=== PATIENT | female | born 1960 | race Caucasian/White ===

== ENCOUNTER → 2017-05-14 | Outpatient (CLI) | payer BC ==
[~2017-05-14] MED LIST: AMITRIPTYLINE H25 M2 PO; CLONAZEPAM 0.50.5 M1 PO; CLONAZEPAM 1 MG1 M1 PO; CYMBALTA60 MG PO; ESTRADIOL PO; HYDROCODON-ACE1 EAC5 PO; HYDROCODON-ACE1 EAC8 PO; LIORESAL 10 MG10 MG PO; MENOPAUSE SUPPO20 MG PO; NABUMETONE 500500 M1 PO; NEURONTIN 300300 M1 PO; NICOTINE PATCH1 EAC2 TRANSDERM; NORTRIPTYLINE H25 M3 PO; NUCYNTA50 MG PO; NUCYNTA75 MG PO; RELACOR PO; TRAMADOL 50 MG50 MG PO; VITAMIN B-12500 MCG PO
--- NOTE | 2017-05-30 07:40 | PAINCON ---
[address] [address] PAIN MANAGEMENT CONSULTATION Name: SHAYY JONES Room: [facility]#: [id number] Admission: 05/14/17 Attend Phys: Saroj Alejo DO Discharge: Date of : 64 Report #: [id number] THIS REPORT FOR: //name// CC: Bo Clarke DATE OF SERVICE: 05/14/2017 REFERRING PHYSICIAN: Bo Aragon DO. CHIEF COMPLAINT: Neck pain, upper back pain and left knee pain. HISTORY OF PRESENT ILLNESS: As you know, the patient is a 56-year-old female with multiple pain generators, including neck, upper back and left knee pain. She returns today in followup visit for medication management. She states the combination medications provided 50% improvement in overall pain, despite the fact that she is providing pain level of 7/10 today. She states pain is exacerbated with activities, cold temperatures, walking, standing, lifting or bending and improves with medications, heat and cold compresses, rest and exercise. Unfortunately, the patient continues to smoke half pack tobacco per day and she has been advised to discontinue this as this is exacerbating her chronic pain. She returns today requesting medication management. ALLERGIES: No known drug allergies. CURRENT MEDICATIONS: Baclofen 10 mg 2 tabs p.o. t.i.d., duloxetine 60 mg 1 tab p.o. at bedtime, nabumetone 500 mg 3 times a day, Nicoderm patch apply topically once a day, nortriptyline 50 mg p.o. at bedtime and Nucynta 50 mg every 8 hours p.r.n. for pain. IMAGING: No new imaging available. PHYSICAL EXAMINATION: VITAL SIGNS: Blood pressure 136/88, pulse of 104 and respiratory rate 16 and unlabored. The patient is 96% on room air, current temperature 98.2 degrees Fahrenheit. Height 5 feet 1 inch tall, weight 172.8 pounds and BMI calculated at 32.6. GENERAL: Well-developed, well-nourished and well-hydrated exogenously obese 56-year-old female, appears older than stated age, smells of tobacco smoke, placing current pain score a 7/10. HEENT: Normocephalic, atraumatic. Pupils equal, round and reactive to light. Speech is fluent. EXTREMITIES: Show no clubbing, no cyanosis and no edema. MUSCULOSKELETAL: Palpatory tenderness is noted over the paraspinal musculature of cervical and thoracic region. Also noted [place] [address] PAIN MANAGEMENT CONSULTATION Name: SHAYY JONES Room: [facility]#: [id number] Admission: 05/14/17 Attend Phys: Saroj Alejo DO Discharge: Date of : 64 Report #: [id number] Palpatory tenderness over the paraspinal musculature of the lumbar spine. No spinous process tenderness. ASSESSMENT: 1. Chronic pain. 2. Myofascial pain syndrome. 3. Tension headache. 4. Continued tobacco habituation. 5. Left knee pain. 6. Chronic intractable pain. PLAN: 1. The patient returns today in followup visit where we once again had a very long discussion about her social activities. The patient has been relatively sedentary. She remains mostly in home. She does not participate in any activities, such as volunteer work or even any type of activities around the house. I have encouraged her to initiate some type of volunteer work or begin doing chores and assisting around the home. I believe that her lack of activity is precipitating worsening pain issues. We are hypermobile creatures and we need to continue to move to maintain good affects. Sedentary lifestyle has been met with increasing pain consistently in all studies. She needs to become more active. 2. The patient and I discussed at length today smoking cessation. I have advised the patient that we at [facility] require that our patients remain smoke free while they are being treated for chronic pain. The patient is now at a half pack tobacco per day. She is utilizing a nicotine patch to reduce her reliance of smoking and then ultimately come off nicotine patches. I have advised the patient she has 3 months to discontinue smoking. We cannot continue to provide medication in the form of controlled substances to individuals who continued to participate in activities that are known to exacerbate chronic pain. She needs to discontinue this activity as quickly as possible so that we can reap the benefits of a smoke-free lifestyle. 3. The patient was provided a refill prescription on nabumetone 500 mg dose 1 tab p.o. t.i.d. I have given the patient this prescription with 1 refill, 2 months' worth of medication. 4. The patient was provided prescription of baclofen 10 mg dose 2 tabs 3 times a day. I have given #90 tablets to titrate as necessary. She was given this with 1 refill, 2 months' worth of medication. 5. The patient was provided a prescription of nortriptyline 25 mg dose 2 tabs p.o. at bedtime, #60, one refill, 2 months' worth of medication. 6. The patient was provided a refill prescription of pindolol 50 mg dose 1 tab p.o. t.i.d., #90, 2 refills. 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 If she wishes, I would recommend at least looking towards volunteer work in [place] [address] PAIN MANAGEMENT CONSULTATION Name: SHAYY JONES [id number] Admission: 05/14/17 Attend Phys: Saroj Alejo DO Discharge: Date of : 64 Report #: [id number] the patient more motivated and will ultimately reduce the patient's perception of pain. 7. We will see the patient back in followup visit in 2 months. At that time, we will discuss the smoking cessation issues. If she has not discontinued smoking, we will have to return her care to her PCP for referral to another pain clinic as this is now requirement of [facility] to maintain analgesic medications in the form of controlled substances. <ELECTRONICALLY SIGNED> By: Saroj Alejo DO 05/30/17 0740 1250 0003Jasanna Alejo DO /nt
== END ==
LOC: M.PC 01:14
DX: G89.29 Other chronic pain (principal); G44.209 Tension-type headache, unspecified, not intractable; M79.1 Myalgia; F17.210 Nicotine dependence, cigarettes, uncomplicated

== ENCOUNTER → 2017-07-26 | Outpatient (CLI) | payer BC ==
--- NOTE | 2017-08-08 14:36 | PAINCON ---
[facility] [address] [place] [address] PAIN MANAGEMENT CONSULTATION Name: SHAYY JONES Room: [facility] Lynn#: [id number] Admission: 07/26/17 Attend Phys: Cy Villegas MD Discharge: Date of : 64 Report #: [id number] THIS REPORT FOR: //name// CC: Bo Gutiérrez DATE OF SERVICE: 07/26/2017 HISTORY OF PRESENT ILLNESS: The patient is a 56-year-old female who has been seen in the Pain Clinic because of neck pain, upper back pain and left knee pain. She was being seen by Dr. Alejo. This is my first time seeing the patient in the Pain Clinic. She states that she has a long-term history of neck and upper back pain. She also has some pain in her left knee. She finds that her medications are helpful, they include nortriptyline. She is not having any problems with increased somnolence or problems mentating. Finds that the baclofen is helpful with the muscle spasms. Notes that she does have some osteoarthritis in the upper neck and shoulder area. The patient has some chronic left knee pain as well. Notes that driving with stick shift makes her left arm pain worse, also cause some discomfort in the area of her shoulder. She had right knee surgery in 2013. She states that she is trying to decrease her use of tobacco. She is down to one-half pack per day. Notes that some episodes in life which have caused increased stress have made it more difficult for her to continue on a downward course with her tobacco, but she continues to try. She feels that use of the Cymbalta medication continues to be efficacious and help improve her mood. Rates her pain as a 4 to 5 today. Notes that things have exacerbated her discomfort or certain activities, the cold weather we are having or walking and standing. Driving her car, which is a stick shift, can be more aggravating to her left arm. ALLERGIES: NO KNOWN DRUG ALLERGIES. MEDICATIONS: Current mediations which have been reviewed are baclofen 10 mg p.o. b.i.d., Cymbalta 60 mg at bedtime, nabumetone 500 mg t.i.d., nicotine patch, nortriptyline 25 mg 2 tablets at bedtime and Nucynta 50 mg q. 8 hours p.r.n. PAST MEDICAL HISTORY: Chronic back pain, myofascial pain, depression, left knee pain, chronic intractable pain, plantar fasciitis. PAST SURGICAL HISTORY: Right knee surgery in 2013, right carpal tunnel surgery in 2007, wisdom teeth extraction in 1995, herniorrhaphy repair in 1994, tubal ligation in 1994, bunionectomy in 1988, colonoscopy with polypectomy in 2009. SOCIAL HISTORY: Smokes cigarettes. She is , lives with her spouse and son, has 3 children. She is unemployed, worked with that of [place] [address] PAIN MANAGEMENT CONSULTATION Name: RUTHKENNEY LYONSRA Barry Room: [facility] Lynn#: [id number] Admission: 07/26/17 Attend Phys: Cy Villegas MD Discharge: Date of : 64 Report #: [id number] cigarettes, started at the age 19, three-quarters of a pack daily in the past, now down to one-half pack. REVIEW OF SYSTEMS: Indicates generally good health, some fatigue, weakness, headaches, wears glasses, foot pain, history of plantar fasciitis, weakness of muscles and joints, back pain, difficulty walking, frequent headaches, numbness and tingling sensation, depression, anemia. LABORATORY DATA: No known laboratory values are available at the time of our interview. PAIN CLINIC ASSESSMENT: 1. History of osteoarthritis/arthritis: The patient is not being treated for osteoarthritis or rheumatoid arthritis. 2. Height 5 feet 1 inch, weight 178 pounds, BMI is 35. 3. Vital signs: Blood pressure 123/77, heart rate 112, respiratory rate 16, room air saturation is 95%, temperature 98.6. 4. Pain intensity rated at 4/5 out of 10. 5. Risks: The patient has not fallen in the last 3 months. 6. Blood thinner: The patient is not on a blood thinner. 7. Hypertension: The patient is not being treated for hypertension. 8. Opioid therapy: The patient has not been receiving narcotic medications. She finds that the Nucynta is helpful. 9. Risk assessment tool. 10. Functional assessment tool: The patient scores 45 out of 70 in regards to general activity, mood, walking ability, work, relationship with others, sleep and enjoyment of life. 11. The patient denies use of recreational drugs. The patient continues to try to decrease her use of tobacco. She is down from three-quarters of a pack to one-half pack. IMPRESSION: 1. Chronic neck pain. 2. Myofascial pain. 3. Tension headaches. 4. Depression. 5. Tobacco use. The patient is working to decrease this. 6. Left knee pain. 7. Chronic intractable pain. RECOMMENDATIONS: We discussed treatment options with the patient. At this juncture, we will continue with her Nucynta, baclofen, Cymbalta and nabumetone. The patient will continue to monitor stomach for possibility of irritation from the nonsteroidal anti-inflammatory medications. She feels overall that she is making some progress. She finds that the Nucynta is helpful. She is able to engage in activities that she would have more [place] [address] PAIN MANAGEMENT CONSULTATION Name: SHAYY JONES Room: [facility]#: [id number] Admission: 07/26/17 Attend Phys: Cy Villegas MD Discharge: Date of : 64 Report #: [id number] Notes that she is trying to exercise more. She will continue with her course of decreasing the use of tobacco. She will call us if she has any problems with her medications. A script for Nucynta 50 mg 1 p.o. t.i.d., baclofen 10 mg t.i.d. and nabumetone 500 mg p.o. t.i.d. with meals has been written. The patient has not had any problems with the nortriptyline and we will continue its use at bedtime, she takes a total of 50 mg 2 capsules daily. <ELECTRONICALLY SIGNED> By: Cy Villegas MD 08/08/17 1436 1345 [id number]. Kojo Villegas MD /nt
== END ==
LOC: M.PC 07-19 10:10
DX: G44.209 Tension-type headache, unspecified, not intractable (principal); G89.29 Other chronic pain; M79.1 Myalgia; F17.200 Nicotine dependence, unspecified, uncomplicated; F32.9 Major depressive disorder, single episode, unspecified; M25.562 Pain in left knee; Z98.890 Other specified postprocedural states

== ENCOUNTER → 2017-09-20 | Outpatient (CLI) | payer BC ==
--- NOTE | 2017-09-26 08:18 | PAINCON ---
[facility] [address] [place] [address] PAIN MANAGEMENT CONSULTATION Name: SHAYY JONES Room: [facility] Leah#: [id number] Admission: 09/20/17 Attend Phys: Cy Villegas MD Discharge: Date of : 64 Report #: [id number] THIS REPORT FOR: //name// CC: Bo Gutiérrez DATE OF SERVICE: 09/20/2017 CHIEF COMPLAINT: Chronic neck pain. FOLLOWUP HISTORY: The patient is a 56-year-old female who has been seen in the pain clinic because of chronic pain involving her neck. Has chronic discomfort with some tension headaches. Also, has problems with depression. These have been going on for a number of years. Feels that her pain continues to be reasonably managed with use of her current medical regimen of Cymbalta, nortriptyline, baclofen, Nucynta, and nabumetone. She would like to continue with her current medications. Has not had any significant problems since we saw her last. Continues to try to decrease the amount of tobacco that she is using. She rates her pain as 4/10 at this juncture. Certain activities of daily living such as walking, standing, driving a car, which has a stick shift can exacerbate her pain. It is more problematic on her left side. ALLERGIES: No known drug allergies. MEDICATIONS: Baclofen 10 mg p.o. b.i.d., Cymbalta 60 mg at bedtime, nabumetone 500 mg t.i.d., nicotine patch, nortriptyline 25 mg 2 tablets at bedtime, Nucynta 50 mg q.8h. PAIN CLINIC ASSESSMENT: 1. The patient is not being treated for osteoarthritis or rheumatoid arthritis. 2. Height 5 feet 1 inch, weight 176 pounds, BMI is 33. 3. Vital signs: Blood pressure 140/85, pulse 101, respiratory rate 16, room air saturation 94%, temperature 98.6. 4. Pain score 4/10. 5. Fall risk. The patient has not fallen in the last 3 months. 6. Blood thinner. The patient is not on a blood thinning agent. 7. History of hypertension. The patient is not being treated for hypertension. 8. Opioid therapy greater than 6 weeks. The patient is not on an opioid medication, but does take Nucynta. 9. Risk assessment tool. 10. Functional assessment old. 11. Recreational drug use. Denies use of recreational drugs. 12. Tobacco: The patient is down from 2 packs of cigarettes per day to 1-1/2 pack of cigarettes per day and has about 38-year smoking history. 13. Alcohol. Denies use of alcoholic [place] [address] PAIN MANAGEMENT CONSULTATION Name: KARENKENNEYSHAYY E Room: [facility]#: [id number] Admission: 09/20/17 Attend Phys: Cy Villegas MD Discharge: Date of : 64 Report #: [id number] PHYSICAL EXAMINATION: GENERAL: The patient is a well-developed white female, appears her stated age. Affect is appropriate. Speech is smooth. HEENT: Normocephalic, atraumatic. Extraocular eyes muscles intact. Sclerae nonicteric. Hearing is within normal limits. Mucous membranes are moist. NECK: Has some pain in her upper back and in the neck. HEART: Regular rate. ABDOMEN: Nontender. LUNGS: Clear to auscultation. MUSCULOSKELETAL: Without significant kyphosis, scoliosis, or lordosis. The patient has some pain in her left knee. Also, has some pain involving her upper back and left arm. IMPRESSION: 1. Chronic neck pain. 2. Myofascial pain. 3. Tension headaches. 4. Depression. 5. Tobacco use. The patient is down to 1-1/2 pack of cigarettes per day from 2 a day. 6. Left knee pain. 7. Chronic intractable pain. RECOMMENDATIONS: We discussed treatment options with the patient. We will continue with her current medical regimen. She feels that this is efficacious. Rates her pain as 4/10. She is unable to engage in activities of daily living. When she takes her medications, applies cold and rest, and also, notes that exercise has been helpful. Prolonged standing, walking, and other activities can exacerbate the pain and discomfort in the aforementioned areas. She will continue with her nonsteroidal anti-inflammatory medication. A script for baclofen, Cymbalta, nortriptyline, nabumetone, and Nucynta have been rewritten. She will call us if she has any problems with medications. <ELECTRONICALLY SIGNED> By: Cy Villegas MD 09/26/1718 1336 2018Gwen. Kojo Villegas MD /[facility]
== END ==
LOC: M.PC 07-09 08:50
DX: M54.2 Cervicalgia (principal); G89.29 Other chronic pain; M79.1 Myalgia; F32.9 Major depressive disorder, single episode, unspecified; G44.209 Tension-type headache, unspecified, not intractable; M25.562 Pain in left knee; F17.210 Nicotine dependence, cigarettes, uncomplicated

== ENCOUNTER → 2017-11-15 | Outpatient (CLI) | payer BC ==
--- NOTE | 2017-11-22 15:18 | PAINCON ---
[address] [address] PAIN MANAGEMENT CONSULTATION Name: RUTHELOYSHAYY E [id number] Admission: 11/15/17 Attend Phys: Cy Villegas MD Discharge: Date of : 64 Report #: [id number] THIS REPORT FOR: //name// CC: Bo Gutiérrez DATE OF SERVICE: 11/15/2017 FOLLOWUP COMPLAINT: Chronic neck pain, back pain, knee and arm pain. FOLLOWUP HISTORY: The patient is a 57-year-old female who has been seen in the pain clinic because of chronic pain involving the neck, upper back, left knee, left arm. 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 Finds that her medications are helpful and enable her to be gainfully employed. Has had no complications from use of her medications. States that she keeps her medications in a guarded area. She would like to have the medications renewed at this juncture. States she is continuing to try to decrease her use of tobacco. She rates her pain as 4/10 at this juncture. Notes the pain continues to be problematic with activities of daily living, cold temperatures, walking, prolonged standing. She has continued to use her medications. Use coat when necessary, rest and tries to exercise. ALLERGIES: No known drug allergies. CURRENT MEDICATIONS: Baclofen 10 mg 1 p.o. b.i.d., Cymbalta 60 mg at bedtime, nabumetone 500 mg t.i.d., nicotine patch, nortriptyline 25 mg 2 tablets at bedtime, Nucynta 50 mg q.8 hours. PAIN CLINIC ASSESSMENT: 1. The patient is not being treated for osteoarthritis, but does complain of some joint pain and discomfort. 2. Height 5 feet 1 inch, weight 175 pounds, BMI is 32. 3. Vital signs: Blood pressure 132/80, heart rate 111, respiratory rate 18, room air saturation 97%, temperature 98.4. Pain score 4/10. 4. Fall risk. The patient has not fallen in the last 3 months. 5. Blood thinner. The patient is not on a blood thinning medication. 6. History of hypertension. The patient is not being treated for hypertension. 7. Opioid therapy greater than 6 weeks. The patient receives her Nucynta from the pain clinic. 8. Risk assessment tool. 9. Functional assessment tool. 10. Recreational drug use. The patient denies use of recreational drugs. 10. Tobacco: The patient states that she is down from 2 packs of cigarettes today to 1-1/2 to 1/2 pack of cigarettes per day. 11. Alcohol: The patient denies use of alcoholic beverages [place] [address] PAIN MANAGEMENT CONSULTATION Name: KARENKENNEYSHAYY E Room: [facility]#: [id number] Admission: 11/15/17 Attend Phys: Cy Villegas MD Discharge: Date of : 64 Report #: [id number] PHYSICAL EXAMINATION: GENERAL: The patient is a well-developed, well-nourished white female, appears her stated age. She is alert and speech is fluent. HEENT: Normocephalic, atraumatic. Extraocular eye muscles intact. Sclerae nonicteric. Hearing within normal limits. Mucous membranes are moist. NECK: Without adenopathy or JVD, has some pain in her neck and in the upper back area. HEART: Regular rate. ABDOMEN: Nontender. LUNGS: Clear to auscultation. MUSCULOSKELETAL: Without significant kyphosis, scoliosis or lordosis. The patient has pain in her left knee and left arm. IMPRESSION: 1. Chronic neck pain. 2. Myofascial pain. 3. Tension headaches. 4. Depression. 5. Tobacco use, down from 2 packs per day to 1-1/2 pack per day. 6. Left knee pain. 7. Chronic intractable pain. RECOMMENDATIONS: We discussed treatment options with the patient. At this juncture, we will continue with her current medical regimen. Feels that her medications are helpful. 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 Feels that this medication enables her to stay and be gainfully employed. States she has taken her medication as prescribed. We will continue with her medications. A script for her medications of baclofen, Cymbalta, nortriptyline, nabumetone and Nucynta have been written. The patient will call us if she has any problems with her medications. We would like to thank you for letting us participate in her care. We hope she continues to improve. Two months of medication has been dispensed. <ELECTRONICALLY SIGNED> By: Cy Villegas MD 11/22/17 1518 1522 1933N. Kojo Villegas MD /[facility]
== END ==
LOC: M.PC 03:58
DX: M54.2 Cervicalgia (principal); M79.1 Myalgia; G89.4 Chronic pain syndrome; M25.562 Pain in left knee; G44.209 Tension-type headache, unspecified, not intractable; F32.9 Major depressive disorder, single episode, unspecified; F17.200 Nicotine dependence, unspecified, uncomplicated

== ENCOUNTER → 2018-01-10 | Outpatient (CLI) | payer BC ==
--- NOTE | 2018-01-23 16:41 | PAINCON ---
[address] [address] PAIN MANAGEMENT CONSULTATION Name: SHAYY JONES Room: [facility] [place]#: [id number] Admission: 01/10/18 Attend Phys: Cy Villegas MD Discharge: Date of : 64 Report #: [id number] THIS REPORT FOR: //name// CC: Bo Villegas DATE OF SERVICE: 01/10/2018 FOLLOWUP COMPLAINT: Upper neck, back, knee and arm pain. FOLLOWUP HISTORY: The patient is a 57-year-old female who has been followed in the Pain Clinic. As you recall, she has quite a bit of pain involving numerous areas. She has neck involvement, upper back involvement, left knee and left arm problems. She has had this for years. She notes that her pain at this juncture is most problematic in the left knee and continues to be problematic. The patient continues to work at her new job. 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 She works 3 days a week. She feels that her medications are working well. They enable her to stay gainfully employed. She tried Nucynta. She was unable to continue with this medication, secondary to insurance declining payment. She rates her pain as a 4/10. She feels that baclofen is helpful. Nortriptyline, nabumetone, and Cymbalta are helpful as well. Overall, she feels that things are about 60% improved. She has not had any complications with her medications. She finds that activities, walking, standing, prolonged sitting, all increase her pain and discomfort. Lifting greater than 15 pounds is problematic as well. She finds that rest and cold are helpful. She continues to try to exercise. ALLERGIES: No known drug allergies. CURRENT MEDICATIONS: Baclofen 10 mg p.o. t.i.d., Cymbalta 60 mg at bedtime, nabumetone 500 mg t.i.d., nicotine patch, nortriptyline 25 mg two tablets at bedtime. Nucynta has been discontinued secondary to its cost. PAIN CLINIC ASSESSMENT: 1. The patient is not being treated for osteoarthritis, but has some complaints of joint pain and discomfort. 2. Height 5 feet 1 inch, weight 167 pounds, BMI is 35. 3. Vital signs: Blood pressure 138/84, heart rate 92, respiratory rate 16, room air saturation 96%, temperature 98.6. 4. Pain score: 4/10. 5. Fall risk: The patient has not fallen in the last 3 months. 6. Blood thinner: The patient is not on a blood thinning medication. 7. History of hypertension: The patient is not being treated for hypertension. 8. Opioids greater than 6 weeks: The patient is not on opioid medication. 9. Risk assessment tool. 10. Functional [place] [address] PAIN MANAGEMENT CONSULTATION Name: SHAYY JONES Room: [facility]#: [id number] Admission: 01/10/18 Attend Phys: yC Villegas MD Discharge: Date of : 64 Report #: [id number] 11. Recreational drug use: The patient denies use of recreational drugs. 12. Tobacco: The patient states that she is down from 2 packs of cigarettes a day to 1-1/2 packs per day. 13. Alcohol: The patient denies use of alcoholic use on a regular basis. PHYSICAL EXAMINATION: GENERAL: The patient is a well-developed, well-nourished white female. She appears her stated age. She is alert and oriented x 3. Speech is fluent. HEENT: Normocephalic, atraumatic. Extraocular eye muscles intact. Sclerae nonicteric. Hearing within normal limits. Mucous membranes are moist. NECK: Without adenopathy or JVD. Her neck is slightly painful. She notes some discomfort in the upper muscle area. HEART: Regular rate. S1, S2. ABDOMEN: Nontender. LUNGS: Clear to auscultation. MUSCULOSKELETAL: Without significant kyphosis, scoliosis, or lordosis. The patient does continue to complain of pain and discomfort in her left knee as well as pain in her left arm. IMPRESSION: 1. Chronic neck pain. 2. Myofascial pain. 3. Tension headaches. 4. Depression. 5. Tobacco use. The patient is down from 2 packs to 1-1/2 packs per day. 6. Left knee pain. 7. Chronic intractable pain. RECOMMENDATIONS: We discussed treatment options with the patient. We will continue with her current medical regimen. She feels that the medications will allow her to remain gainfully employed. She is not having any problems with the medications. She is unable to continue with Nucynta. We will rewrite for her medications of baclofen, Cymbalta, nortriptyline, and nabumetone. The patient will call us if she has any problems with her medications. She will continue with her exercise regimen. We would like to thank you for letting us participate in her care. We hope she continues to improve. <ELECTRONICALLY SIGNED> By: Cy Villegas MD 01/23/18 1641 18 [id number]. Kojo Villegas MD /reina
== END ==
LOC: M.PC 05:00
DX: M54.2 Cervicalgia (principal); G89.29 Other chronic pain; F32.9 Major depressive disorder, single episode, unspecified; R51 Headache; M25.562 Pain in left knee; M79.1 Myalgia; Z72.0 Tobacco use

== ENCOUNTER → 2018-02-28 | Outpatient (CLI) | payer BC ==
--- NOTE | 2018-04-10 15:49 | PAINCON ---
[address] [address] PAIN MANAGEMENT CONSULTATION Name: SHAYY JONES [id number] Admission: 02/28/18 Attend Phys: Cy Villegas MD Discharge: Date of : 64 Report #: [id number] THIS REPORT FOR: //name// CC: Bo Villegas DATE OF SERVICE: 02/28/2018 FOLLOWUP COMPLAINT: Here for medication renewal, continued pain in the neck, knee, arm and back. FOLLOWUP HISTORY: The patient is a 57-year-old female followed in the pain clinic. She has quite a bit of pain involving numerous areas. She has neck pain with upper back involvement. She complains of left knee and left arm problems. She has had these problems for years. Pain at this juncture is most problematic in the left knee and continues to be reasonably problematic. She rates her pain as a 5-6/10. She continues to work at her job. 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 They are helpful. Not having any problems with mentation. Not having any problems with her sensorium. Feels that her nortriptyline, nabumetone and Cymbalta are helpful. Overall, she rates things about 50% improved with her medications. Things that exacerbate her discomfort are walking, sitting, standing for prolonged periods of time, cold temperatures and certain activities. She continues to exercise to help improve her flexibility and muscle strength. ALLERGIES: No known drug allergies. MEDICATIONS: Baclofen 10 mg 1 p.o. t.i.d., Cymbalta 60 mg at bedtime, nabumetone 500 mg t.i.d., nicotine patch, nortriptyline 25 mg 2 tablets at bedtime. PAIN CLINIC ASSESSMENT/PQRS: 1. The patient is not being treated for osteoarthritis, but complains of joint pains. She has not been treated for rheumatoid arthritis. 2. Height 5 feet 1 inch, weight 161 pounds, BMI is 30.4. 3. Vital signs: Blood pressure 144/85, heart rate 100, respiratory rate 16, room air saturation 98%, temperature 97.8. 4. Pain intensity score 5-6/10. 5. Fall risk. The patient has not fallen in the last 3 months. 6. Blood thinner. The patient is not on a blood thinning medication. 7. Hypertension. The patient is not being treated for hypertension. 8. Opioid greater than 6 weeks. The patient is receiving tramadol for the pain clinic. 9. Risk assessment tool. 10. [place] [address] PAIN MANAGEMENT CONSULTATION Name: SHAYY JONES Room: [facility]#: [id number] Admission: 02/28/18 Attend Phys: Cy Villegas MD Discharge: Date of : 64 Report #: [id number] 10. Recreational drug use. The patient denies use of recreational drugs. 11. Tobacco: The patient states that she is down from 2 packs a day to one-half pack of cigarettes per day. 12. Alcohol: The patient denies use of alcoholic beverages on a regular basis. PHYSICAL EXAMINATION: GENERAL: The patient is a well-developed, well-nourished white female. Appears her stated age. She is alert and oriented x 3. Her affect is appropriate. Speech is fluent. HEENT: Normocephalic, atraumatic. Extraocular eye muscles intact. Sclerae nonicteric. Hearing is within normal limits. Mucous membranes are moist. NECK: Without adenopathy or JVD. Notes some slight pain in her neck and discomfort in the upper muscle area. HEART: Regular rate. S1, S2. ABDOMEN: Nontender. LUNGS: Clear to auscultation. MUSCULOSKELETAL: Without significant scoliosis, kyphosis or lordosis. The patient does have some pain and discomfort in her left knee as well as pain in her left arm. She has numbness in her right hand and secondary to increased working with it. ASSESSMENT: 1. Chronic neck pain. 2. Myofascial pain. 3. Tension headaches. 4. Depression. 5. Tobacco use, down from 2 packs a day to one-half pack of cigarettes per day, continues with nicotine patch at 6. Left knee pain. 7. Chronic intractable pain. RECOMMENDATIONS: We discussed treatment options with the patient. At this juncture, she feels that her current medications are helpful. A renewal of her medications have been written. A script for nortriptyline 25 mg, a total of 50 mg at bedtime has been written, nabumetone 500 mg 1 p.o. t.i.d. with meals, baclofen 10 mg 1-2 tablets p.o. t.i.d., Cymbalta 60 mg 1 tablet p.o. at bedtime. The patient will call us if she has any problems with her medications. We would like to thank you for letting us participate in her care. We hope she continues to improve. <ELECTRONICALLY SIGNED> By: Cy Villegas MD 04/10/18 1549 1756 Ale. Kojo Villegas MD /reina
== END ==
LOC: M.PC 04:51
DX: M54.2 Cervicalgia (principal); G89.4 Chronic pain syndrome; M79.18 Myalgia, other site; G44.209 Tension-type headache, unspecified, not intractable; M25.562 Pain in left knee; F32.9 Major depressive disorder, single episode, unspecified; F17.211 Nicotine dependence, cigarettes, in remission; Z79.899 Other long term (current) drug therapy

== ENCOUNTER → 2018-04-25 | Outpatient (CLI) | payer BC ==
--- NOTE | 2018-05-03 17:20 | PAINCON ---
[address] [address] PAIN MANAGEMENT CONSULTATION Name: KARENSHAYY E Room: [facility].#: [id number] Admission: 04/25/18 Attend Phys: Cy Villegas MD Discharge: Date of : 64 Report #: [id number] THIS REPORT FOR: //name// CC: Bo Gutiérrez DATE OF SERVICE: 04/25/2018 PRIMARY CARE PHYSICIAN: Bo Aragon D.O. FOLLOWUP COMPLAINT: Neck, back, knee and arm pain. FOLLOWUP HISTORY: The patient is a 57-year-old female who has been followed in the pain clinic because of pain. Has numerous areas were pain is involved. Has pain in her upper neck and back. States that she is having pain in her knee on the left side as well as some left arm problems. She has had these problems for a number of years. Pain is most problematic in the left knee and continues to be difficult. Rates her pain today as a 4/10, down from 5-6/10 at the last visit. She continues to work at her job. 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 Feels that the medications continue to be helpful and enable her to stay employed. She has been having some problems with her right wrist. She had a cyst in the wrists, which seemed to be causing increased pain. She has been working. In the process of working, she cut her left finger. It was a significant cut involving her left hand. She has had it taped up. Notes that there was some bleeding and this has stopped. Overall, it continues to be somewhat pink, but sore. ALLERGIES: No known drug allergies. MEDICATIONS: Baclofen 10 mg 1 p.o. t.i.d., Cymbalta 60 mg at bedtime, Nabumetone 500 mg t.i.d., nicotine patch, nortriptyline 25 mg 2 tablets at bedtime. PAIN CLINIC ASSESSMENT AND PQRS: 1. The patient is not being treated for osteoarthritis, but complains of joint pain. She has not been treated for rheumatoid arthritis. 2. Height 5 feet 1 inch, weight 163 pounds, BMI is 31. 3. Vital Signs: Blood pressure 121/78, heart rate 91, respiratory rate 16, room air saturation is 97%, and temperature 98.2. 4. Pain intensity, 4/10. 5. Fall history. The patient has not fallen in the last 3 months. 6. Blood thinner. The patient is not on a blood thinning medication. 7. Hypertension. The patient is not being treated for hypertension. 8. Opioid greater than 6 weeks. The patient is receiving tram[place] [address] PAIN MANAGEMENT CONSULTATION Name: KARENKENNEYSHAYY E Room: [facility]#: [id number] Admission: 04/25/18 Attend Phys: Cy Villegas MD Discharge: Date of : 64 Report #: [id number] 9. Risk assessment tool. 10. Functional assessment tool. 11. Recreational drug use. The patient denies use of recreational drugs. 12. Tobacco: The patient states that she is decreasing the amount of tobacco that she is using. We have again discussed the benefits of smoking cessation. 13. Alcohol: The patient denies alcoholic beverage use on a regular basis. PHYSICAL EXAMINATION: GENERAL: The patient is a well-developed, well-nourished white female. Appears her stated age. She is alert and oriented x 3. Affect is appropriate. Speech is fluent. HEENT: Normocephalic, atraumatic. Extraocular eye muscles intact. Sclerae nonicteric. Hearing is within normal limits. Mucous membranes are moist. NECK: Without adenopathy or JVD. The patient has some slight pain in her neck and some discomfort in the upper muscles. HEART: Regular rate. S1, S2. ABDOMEN: Nontender. LUNGS: Clear to auscultation without rhonchi or rales. MUSCULOSKELETAL: Without significant scoliosis, kyphosis or lordosis. The patient has pain in her left knee as well as pain in her left arm. She has some numbness in the right hand secondary to increased use of work on it. The patient has a cut on the left hand on her finger. It is about half inch in length. It is somewhat oval shaped. The area is pink and shows some signs of capillary refill. Around the edges, this area is not showing signs of infection, but appears to be very sore. It looks like a flap of skin around the edges is attached. The patient states that she needs to continue to work. The patient was given a pair of sterile gloves. I think if she were to keep the gloves on and wash her hands with the gloves on, she would do well, rather than continue to wash the area that is trying to attach. ASSESSMENT: 1. Chronic neck pain. 2. Myofascial pain. 3. Tension headache. 4. Depression. 5. Tobacco. The patient's down to 1/2 pack of cigarettes per day, continues to use nicotine patch. 6. Left knee pain. 7. Chronic intractable pain. 8. Cut on her left hand. RECOMMENDATIONS: The patient will monitor it. She will go to the Emergency Room should she note any signs of increased pain or any types of infection. A script for her medications have been rewritten. Hopefully, she continues to do well. She feels that about 60% improvement with use of her medications overall. [place] [address] PAIN MANAGEMENT CONSULTATION Name: SHAYY JONES Room: [facility]#: [id number] Admission: 04/25/18 Attend Phys: Cy Villegas MD Discharge: Date of : 64 Report #: [id number] We would like to thank you for letting us participate in her care. We hope she continues to improve. <ELECTRONICALLY SIGNED> By: Cy Villegas MD 05/03/18 1720 1756 [id number] Villegas MD /[facility]
== END ==
LOC: M.PC 03:47
DX: M54.2 Cervicalgia (principal); M54.5 Low back pain; M25.562 Pain in left knee; M79.18 Myalgia, other site; G89.4 Chronic pain syndrome; G44.209 Tension-type headache, unspecified, not intractable; F17.221 Nicotine dependence, chewing tobacco, in remission; F32.9 Major depressive disorder, single episode, unspecified

== ENCOUNTER → 2018-06-20 | Outpatient (CLI) | payer BC ==
--- NOTE | ~2018-06-20 | PAINCON ---
[facility] [address] [place] [address] PAIN MANAGEMENT CONSULTATION Name: SHAYY JONES [id number] Admission: 06/20/18 Attend Phys: Cy Villegas MD Discharge: Date of : 64 Report #: [id number] THIS REPORT FOR: //name// CC: Bo Gutiérrez DATE OF SERVICE: 06/20/2018 CHIEF COMPLAINT: Neck, back, knee, and arm pain. HISTORY: The patient is a 57-year-old female who has been followed in the Pain Clinic because of chronic pain involving her neck, knee, and back. She has returned today for renewal of her medications. 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 She notes development of a cyst in this area. It has been causing some pain. She also has some left knee pain, which impacts walking and standing. Notes that her back pain continues to cycle with good and bad days. Feels that her current medications of tramadol and baclofen are helpful. The weather has changed. Today is the possibility of getting in single digits. She has noted a worsening of her pain is associated with the changing weather pattern. ALLERGIES: No known drug allergies. CURRENT MEDICATIONS: Baclofen 10 mg 1 p.o. t.i.d., Cymbalta 60 mg at bedtime, nabumetone 500 mg t.i.d., nicotine patch, and nortriptyline 25 mg 2 tablets at bedtime. PAIN CLINIC ASSESSMENT/PQRS: 1. The patient is not being treated for rheumatoid arthritis or osteoarthritis. 2. Height 5 feet 1 inch, weight 161 pounds, BMI is 30. 3. Vital signs: Blood pressure 156/86, heart rate 105, respiratory rate 16, room air saturation 96%, and temperature 98.3. 4. Pain intensity 09/04. 5. Fall risk. The patient has not fallen in the last 3 months. 6. Blood thinner. The patient is not on a blood thinning medication. 7. Hypertension. The patient is not being treated for hypertension. 8. Opioid therapy greater than 6 weeks. The patient is not on opioid medication other than tramadol. 9. Risk assessment tool, low for opioid use. 10. Functional assessment tool. 11. Recreational drug use. The patient denies use of recreational drugs. 12. Tobacco: The patient has smoked one-half pack of cigarettes per day and smoked for 30 years. States she is trying to decrease use of tobacco, [place] [address] PAIN MANAGEMENT CONSULTATION Name: SHAYY JONES Room: [facility]#: [id number] Admission: 06/20/18 Attend Phys: Cy Villegas MD Discharge: Date of : 64 Report #: [id number] 13. Alcohol. The patient does not drink alcoholic beverages on a regular basis. PHYSICAL EXAMINATION: GENERAL: The patient is a well-developed, well-nourished white female. Appears her stated age. She is alert and oriented x 3. Affect is appropriate. Speech is fluent. HEENT: Normocephalic, atraumatic. Extraocular eye muscles intact. Sclerae nonicteric. Mucous membranes are moist. NECK: Without adenopathy or JVD. EXTREMITIES: Upper extremity muscle strength is judged to be 5/5 for the major muscle groups in the upper extremity. The patient has some pain and discomfort in the right upper shoulder trapezius area. MUSCULOSKELETAL: She is without significant scoliosis, kyphosis, or lordosis. Complains of some pain and discomfort in her right wrist in the lateral area. ASSESSMENT: 1. Chronic neck pain, myofascial pain, tension headaches, and depression. 2. Tobacco down to 1.5 pack of cigarettes per day, continues to use nicotine patch. 3. Left knee pain. 4. Chronic intractable pain. RECOMMENDATIONS: We discussed treatment options with the patient. At this juncture, we will continue with her current medical regimen. She feels that this medication is helpful. It allows her to stay gainfully employed. Notes that the pain is helpful and receives about 60% improvement in her pain with use of the current regimen. A script for her medications have been rewritten for nortriptyline 25 mg at bedtime, gabapentin 300 mg t.i.d., Nabumetone 500 mg, duloxetine 60 mg, tramadol 50 mg 1 p.o. 4-6 hours p.r.n. pain. We would like to thank you for letting us participate in her care. We hope she continues to improve. By: [id number]. Kojo Villegas MD /reina
== END ==
LOC: M.PC 10:30
DX: M54.2 Cervicalgia (principal); M25.562 Pain in left knee; G89.29 Other chronic pain; M79.18 Myalgia, other site; G44.209 Tension-type headache, unspecified, not intractable; F32.9 Major depressive disorder, single episode, unspecified; F17.210 Nicotine dependence, cigarettes, uncomplicated

== ENCOUNTER → 2018-08-13 | Outpatient (CLI) | payer BC ==
[~2018-08-13] MED LIST changes: +VOLTAREN GEL 1100 G1 TOP
--- NOTE | ~2018-08-13 | PAINCON ---
[address] [address] PAIN MANAGEMENT CONSULTATION Name: SHAYY JONES Room: [facility]#: [id number] Admission: 08/13/18 Attend Phys: Cy Villegas MD Discharge: Date of : 64 Report #: [id number] THIS REPORT FOR: //name// CC: Bo Gutiérrez DATE OF SERVICE: 08/13/2018 CHIEF COMPLAINT: Continued pain in the neck, back, knee, and arms. HISTORY: The patient is a 57-year-old female who has been followed in the pain clinic because of chronic pain. She has had pain in her upper extremity area, back, and knees for years. Still complains of some pain in her right wrist. Notes that movement in her wrist causes some discomfort at above the area of her right radial side. She notes that this pain makes it difficult for her to hold things and engage in certain activities with her hands without significant pain. Feels that her pain in her left knee feels loose. Her neck pain is described as constant. Notes that some worsening of this discomfort is associated with the change in weather, we have been experiencing. Back pain remains problematic. Overall, she rates her pain as a 6/10. She feels that her medications continue to be helpful. ALLERGIES: No known drug allergies. CURRENT MEDICATIONS: Cymbalta 60 mg at bedtime, baclofen 10 mg t.i.d., nabumetone 500 mg t.i.d., nicotine patch, and nortriptyline 25 mg 2 tablets at bedtime. PAIN CLINIC ASSESSMENT/PQRS: 1. The patient is not being treated for rheumatoid arthritis or osteoarthritis. 2. Height 5 feet 1 inch, weight 163 pounds, BMI is 30.6. 3. Vital signs: Blood pressure 152/76, heart rate 82, respiratory rate 16, room air saturation 98%, temperature 98.1. 4. Pain intensity 11/04. 5. Fall history. The patient has not fallen in the last 3 months. 6. Blood thinner. The patient is not on a blood thinning medication. 7. Hypertension. The patient is not being treated for hypertension. 8. Opioid greater than 6 weeks. The patient is not using opioid medication other than tramadol. 9. Risk assessment tool, low for opioid use. 10. Functional assessment tool. 11. Recreational drug use. The patient denies use of recreational drugs. 12. Tobacco: The patient smokes one-half pack of cigarettes per day and continues to try to decrease her tobacco use. We discussed the risk [place] [address] PAIN MANAGEMENT CONSULTATION Name: SHAYY JONES [facility] [id number] Admission: 08/13/18 Attend Phys: Cy Villegas MD Discharge: Date of : 64 Report #: [id number] 13. Alcohol: The patient denies frequent use of alcoholic beverages. PHYSICAL EXAMINATION: GENERAL: The patient is a well-developed, well-nourished white female. Appears her stated age. She is alert and oriented x 3. Her affect is appropriate. Speech is fluent. HEENT: Normocephalic, atraumatic. Extraocular eye muscles intact. Sclerae nonicteric. Mucous membranes are moist. The patient wears glasses. NECK: Without adenopathy or JVD. HEART: Regular rate. ABDOMEN: Nontender. Bowel sounds present. EXTREMITIES: Upper extremity muscle strength is judged to be 5-/5 for the major muscle groups in the upper extremity. The patient's finger has healed nicely. She did receive a cut pretty significant to her index finger on the left side, that has healed reasonably well. The patient has a small nodule on the right hand in the area near her wrist. Palpation of this area causes some pain and discomfort. It feels to be somewhat solid. Squeezing it does not feel as though it has a significant amount of cystic material. Aspiration would probably not prove very beneficial. Lower extremity muscle strength is judged to be 5/5 for the major muscle groups of the lower extremity. The patient is without scoliosis, kyphosis or lordosis. IMPRESSION AND PLAN: 1. Chronic neck pain, myofascial pain, tension headaches, and depression. 2. Tobacco. Continues to decrease smoking using one-half pack of cigarettes per day. Continues to use a nicotine patch. 3. Left knee pain. 4. Chronic intractable pain. 5. Pain in the right wrist area. It appears that this nodule is quite firm and wrapped around the tendon. I do not know that aspiration would be very beneficial given the size of the nodule. She may find it beneficial to see a surgeon to get their whether or not excision would be helpful. We have provided the patient with a renewal of her medications. A script for amitriptyline 25 mg 2 tablets p.o. at bedtime, gabapentin 300 mg 1 p.o. t.i.d., nabumetone 500 mg t.i.d. with meals, baclofen tablets, Cymbalta 60 mg at bedtime, tramadol 50 mg q.4 hours p.r.n. We would like to thank you for letting us participate in her care. We hope she continues to improve. By: [id number]. Kojo Villegas MD /[facility]
== END ==
LOC: M.PC 04:56
DX: M54.2 Cervicalgia (principal); G89.4 Chronic pain syndrome; M54.5 Low back pain; G44.209 Tension-type headache, unspecified, not intractable; M25.562 Pain in left knee; M25.531 Pain in right wrist; F32.9 Major depressive disorder, single episode, unspecified; F17.210 Nicotine dependence, cigarettes, uncomplicated; Z79.899 Other long term (current) drug therapy

== ENCOUNTER → 2018-10-08 | Outpatient (CLI) | payer BC ==
--- NOTE | 2018-10-24 01:32 | PAINCON ---
[address] [address] PAIN MANAGEMENT CONSULTATION Name: KARENSHAYY E Room: [facility]#: [id number] Admission: 10/08/18 Attend Phys: Cy Villegas MD Discharge: Date of : 64 Report #: [id number] THIS REPORT FOR: //name// CC: Bo Villegas DATE OF SERVICE: 10/08/2018 PRIMARY CARE PHYSICIAN: Bo Aragon DO. CHIEF COMPLAINT: Neck pain. HISTORY: The patient is a 57-year-old female who has been followed in the pain clinic. She has continued to have pain, which is problematic. Pain is most problematic in the neck area today. She has been having frequent headaches over the last week. Feels that her medications tramadol, baclofen and gabapentin have been helpful in making the pain tolerable. Also, has had some pain in her back, knees and involving her arms. Describes pain in her neck is constant. Also, continues to have some discomfort in her left knee, which she feels is troublesome. She feels that her medications are helpful. She has returned to have them renewed. Activities, cold weather, walking, sitting, standing, lifting and bending are problematic items. ALLERGIES: No known drug allergies. CURRENT MEDICATIONS: Cymbalta 60 mg at bedtime, baclofen 10 mg t.i.d., nabumetone 500 mg t.i.d., nicotine patch, nortriptyline 25 mg 2 tablets at bedtime. PAIN CLINIC ASSESSMENT/PQRS: 1. The patient is not being treated for rheumatoid arthritis. She is having some arthritic pain involving her left knee. 2. Height 5 feet 1 inch, weight 154 pounds, BMI is 29. 3. VITAL SIGNS: Blood pressure 145/91, heart rate 83, respiratory rate is 16, room air saturation is 97%, temperature 98. 4. Pain intensity 5/10. 5. Fall history: The patient has not fallen in the last 3 months. 6. Blood thinner. The patient is not on a blood thinning medication. 7. Hypertension. The patient is not being treated for hypertension. 8. Opioids greater than 6 weeks. The patient is not using opioid medications other than tramadol. 9. Risk assessment tool low for opioid use. 10. Functional assessment tool. 11. Recreational drug use. The patient denies use of recreational drugs. 12. Tobacco: The patient smokes half pack of cigarettes per day. She continues to smoke. The patient is trying [place] [address] PAIN MANAGEMENT CONSULTATION Name: SHAYY JONES Room: [facility]#: [id number] Admission: 10/08/18 Attend Phys: Cy Villegas MD Discharge: Date of : 64 Report #: [id number] 13. Alcohol: The patient denies frequent use of alcoholic beverages. PHYSICAL EXAMINATION: GENERAL: The patient is a well-developed, well-nourished white female. Appears her stated age. She is alert and oriented x 3. Her affect is appropriate. Speech is fluent. HEENT: Normocephalic, atraumatic. Extraocular eye muscles intact. Sclerae nonicteric. Mucous membranes are moist. The patient wears glasses. NECK: Without adenopathy or JVD. HEART: Regular rate. S1, S2. ABDOMEN: Nontender. Bowel sounds present. EXTREMITIES: Upper muscle strength is 5-/5 for the major muscle groups in the upper extremity. The patient has a well-healed index finger. This was cut a few months ago. Palpation in this area note some continued soreness. The patient does still have some numbness in the area around the incision. Lower extremity muscle strength judged to be 5/5 for the major muscle groups of the lower extremity. The patient is without scoliosis, kyphosis or lordosis. IMPRESSION: 1. Chronic neck pain/myofascial pain, headaches, depression. 2. Tobacco: The patient is working on decreasing her tobacco use. Use of nicotine patch. 3. Left knee pain, stable at this juncture. 4. Chronic intractable pain. 5. Pain in the right wrist. Some nodule on the right wrist. RECOMMENDATIONS: The patient will follow up with her primary/surgeon for the possibility of excision of this nodule. She will continue with her current medications. A script for amitriptyline 25 mg 2 tablets at bedtime, gabapentin 300 mg 1 p.o. t.i.d., nabumetone 500 mg with meals, baclofen tablets 10 mg 2 tablets t.i.d., tramadol 50 mg q. 4 hours p.r.n. have been written. The patient will call us if she has any concerns. We would like to thank you for letting us participate in her care. She feels that her medications are helpful. She will call us if she has concerns. <ELECTRONICALLY SIGNED> By: Cy Villegas MD 10/24/18 [id number]. Kojo Villegas MD /[facility]
== END ==
LOC: M.PC 07:03
DX: M54.2 Cervicalgia (principal); G89.4 Chronic pain syndrome; M25.562 Pain in left knee; M25.531 Pain in right wrist; M79.10 Myalgia, unspecified site; R51 Headache; F32.9 Major depressive disorder, single episode, unspecified; F17.210 Nicotine dependence, cigarettes, uncomplicated

== ENCOUNTER → 2019-01-28 | Outpatient (CLI) | payer BC ==
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
== END ==
LOC: M.PC 04:47
DX: G89.29 Other chronic pain (principal); M54.2 Cervicalgia; R51 Headache; F32.9 Major depressive disorder, single episode, unspecified; M25.562 Pain in left knee; M25.531 Pain in right wrist; F17.200 Nicotine dependence, unspecified, uncomplicated

== ENCOUNTER → 2019-03-25 | Outpatient (CLI) | payer BC ==
--- NOTE | 2019-04-07 13:25 | PAINCON ---
[address] [address] PAIN MANAGEMENT CONSULTATION Name: KARENSHAYY E Room: [facility]#: [id number] Admission: 03/25/19 Attend Phys: Cy Villegas MD Discharge: Date of : 64 Report #: [id number] THIS REPORT FOR: //name// CC: Bo Gutiérrez DATE OF SERVICE: 03/25/2019 CHIEF COMPLAINT: Neck and arm pain. HISTORY: The patient is a 58-year-old female who has been followed in the pain clinic. She has a number of pain generators. Has pain in her back, pain in her knees and her arms. Today's pain in the left arm and neck are the most problematic. The weather has changed significantly. There has been a drop in temperature to about freezing this morning. She has noticed an increase in pain and discomfort as a result of that. She notes that use of her left arm increases pain and discomfort. She has pain from the elbow to the shoulder area. Continues to stay active. Walking, sitting and standing can exacerbate her pain. Use of her medication as well as cold compresses can be beneficial. Rates her pain as a 4/10 today. She feels that her medications of gabapentin, Cymbalta and nabumetone are helpful. Tramadol helps with pain control as well. ALLERGIES: No known drug allergies. CURRENT MEDICATIONS: Baclofen 10 mg two tablets p.o. t.i.d., Cymbalta 60 mg, Neurontin 300 mg t.i.d., nabumetone 500 mg t.i.d., nortriptyline 25 mg, total of 50 mg daily, tramadol 50 mg every 4-6 hours p.r.n. PAIN CLINIC ASSESSMENT/PQRS: 1. The patient is not being treated for rheumatoid arthritis. She is suffering from some osteoarthritic complaints involving her left knee. 2. Height 5 feet 1 inch, weight 143 pounds, BMI is 26.9. 3. Vital Signs: Blood pressure 150/90, heart rate 87, respiratory rate 16, room air saturation 99%, temperature is 97.5. 4. Pain intensity 09/04. 5. Fall history. The patient has not fallen in the last 3 months. 6. Blood thinner. The patient is not on a blood thinning medication. 7. Hypertension. The patient is not being treated for hypertension. 8. Opioids greater than 6 weeks. The patient received tramadol from one source. 9. Risk assessment tool, low for opioid use. 10. Functional assessment tool. 11. Recreational drug use. The patient denies use of recreational drugs. 12. Tobacco. The patient is decreasing her use of tobacco. Smokes 1/2 pack [place] [address] PAIN MANAGEMENT CONSULTATION Name: KENNEY JONESRA Barry Room: [facility]#: [id number] Admission: 03/25/19 Attend Phys: Cy Villegas MD Discharge: Date of : 64 Report #: [id number] 13. Alcohol. The patient occasionally drinks alcoholic beverages. PHYSICAL EXAMINATION: GENERAL: The patient is a well-developed, well-nourished white female. Appears her stated age. She is alert and oriented x 3. Affect is appropriate. Speech is fluent. HEENT: Normocephalic, atraumatic. Extraocular eye muscles intact. Sclerae nonicteric. Mucous membranes are moist. NECK: Without adenopathy or JVD. HEART: Regular rate. S1, S2. ABDOMEN: Nontender. Bowel sounds present. EXTREMITIES: Upper extremity muscle strength judged to be 5/5 for the major muscle groups in the upper extremity. The patient is without significant scoliosis, kyphosis or lordosis. IMPRESSION: 1. Chronic neck pain/myofascial pain, headache pain. 2. Depression. 3. Tobacco. The patient could try to decrease her use of tobacco. 4. Left knee pain, stable at this juncture, left neck and left arm pain. 5. Chronic right wrist pain as a nodule in the left wrist. RECOMMENDATIONS: We discussed treatment options with the patient. At this juncture, we will continue with her medications. She feels that the use of nabumetone is helpful with the pain. Gabapentin is beneficial and Cymbalta is helpful as well. She feels that the tramadol 50 mg every 4-6 hours is helpful. She feels that the muscle spasms improved with use of baclofen 10 mg t.i.d. The patient will also continue with Voltaren gel to the affected area. She will also continue with nortriptyline at night. The patient is helped with use of her current medical regimen. She will call us if she has any concerns. The script for nabumetone 500 mg 1 p.o. t.i.d. have been written as well as the doxepin, gabapentin, amitriptyline, baclofen and Voltaren gel. The patient will continue with tramadol. She will call us if she has any concerns. We would like to thank you for letting us to participate in her care. We hope she continues to improve. <ELECTRONICALLY SIGNED> By: Cy Villegas MD 04/07/19 [id number]. Kojo Villegas MD /reina
== END ==
LOC: M.PC 05:06
DX: M54.2 Cervicalgia (principal); R51 Headache; M25.562 Pain in left knee; M25.532 Pain in left wrist; G89.29 Other chronic pain; F32.9 Major depressive disorder, single episode, unspecified; F17.200 Nicotine dependence, unspecified, uncomplicated; Z79.899 Other long term (current) drug therapy

== ENCOUNTER → 2019-05-15 | Outpatient (CLI) | payer BC ==
[~2019-05-15] MED LIST changes: +MEDROLDOSEPACK PO
--- NOTE | ~2019-05-15 | PAINCON ---
[address] [address] PAIN MANAGEMENT CONSULTATION Name: SHAYY JONES Room: [facility]#: [id number] Admission: 05/15/19 Attend Phys: Cy Villegas MD Discharge: Date of : 64 Report #: [id number] THIS REPORT FOR: //name// CC: Bo Gutiérrez DATE OF SERVICE: 05/15/2019 CHIEF COMPLAINT: Neck and arm pain. HISTORY: The patient is a 58-year-old female who has been followed in the pain clinic. She has pain and discomfort, which involves her arms. Notes that she has been experiencing more pain on the left side. Pain particularly is prominent in the upper portion of her arm. Notes that between her shoulder and her elbow, certain movements can exacerbate pain. Notes some numbness and tingling in this area as well. She feels like the pain has increased. Rates her pain today as a 6/10. Denies any new trauma. Feels that her medications are helpful and would like to have them renewed. Notes some worsening of pain with cold weather we are experiencing. Walking, sitting and standing can be problematic. Has noticed increased pain with work. She is down to a 30-hour work week. ALLERGIES: No known drug allergies. CURRENT MEDICATIONS: Baclofen 10 mg 2 tablets p.o. t.i.d., Cymbalta 60 mg, Neurontin 300 mg t.i.d., nabumetone 500 mg t.i.d., nortriptyline 25 mg, total of 50 mg daily, tramadol 50 mg q. 4-6 hours p.r.n. PAIN CLINIC ASSESSMENT/PQRS: 1. The patient is suffering from some osteoarthritis, involves her left knee. Notes some arthritic changes in her left shoulder. 2. Height 5 feet 1 inch, weight 144 pounds, body mass index is 27.5. 3. Vital signs: Blood pressure 139/92, heart rate 91, respiratory rate 16, room air saturation 94%, temperature 97.0. 4. Pain intensity 10. 5. Fall history: The patient has not fallen in the last 3 months. 6. Blood thinner. The patient is not on a blood thinning medication. 7. Hypertension. The patient is not being treated for hypertension. 8. Opioids greater than 6 weeks. The patient received medication from one source of the pain clinic. 9. Risk assessment tool, low for opioid use. 10. Tobacco: The patient is trying to decrease her tobacco use, smokes one-half pack of cigarettes per day. 11. Alcohol. The patient denies other [place] [address] PAIN MANAGEMENT CONSULTATION Name: SHAYY JONES Room: [facility]#: [id number] Admission: 05/15/19 Attend Phys: Cy Villegas MD Discharge: Date of : 64 Report #: [id number] PHYSICAL EXAMINATION: GENERAL: The patient is a well-developed, well-nourished white female. Appears her stated age. She is alert and oriented x 3. Her affect is appropriate. Speech is fluent. HEENT: Normocephalic, atraumatic. Extraocular eye muscles intact. Sclerae nonicteric. Mucous membranes are moist. NECK: Without adenopathy or JVD. MUSCULOSKELETAL: The patient has some pain and discomfort in the left arm. Notes some pain and discomfort between the shoulder and the elbow. Note some numbness and tingling in this area. Perceives some weakness in the left arm as well. Has some discomfort, holding up a 5-pound bag of sugar in her left arm. The patient without significant scoliosis, kyphosis or lordosis. IMPRESSION: 1. Chronic neck pain/myofascial pain. 2. Headache pain. 3. Depression. 4. Tobacco: The patient continues to try to decrease use of tobacco. 5. Left knee pain, stable at this juncture. Left arm, left neck pain, which is similar and not inconsistent with cervical radicular pain involving the left arm. 6. Chronic right wrist pain with a nodule in the left wrist. RECOMMENDATION: We discussed treatment options with the patient. At this juncture, we will continue with her current medications. She feels that the tramadol is beneficial. Not have any problem with that medication. She has been using the Voltaren gel to the affected area in the upper extremity. Also, the patient finds that the baclofen is helpful. She is using nabumetone. She is not having any GI problems at this juncture. The patient will also continue with nortriptyline 25 mg 2 tablets at bedtime. We will have the patient try a Medrol Dosepak in the interim. Hopefully, she will find that this medication is helpful in decreasing some of the pain and discomfort she is experiencing. A script for these medications has been provided. She will follow up in the future as needed. We would like to thank you for letting us participate in her care. We hope she continues to improve. By: [id number]. Kojo Villegas MD /nt
== END ==
LOC: M.PC 04:42
DX: M54.2 Cervicalgia (principal); R51 Headache; M25.532 Pain in left wrist; G89.29 Other chronic pain; F32.9 Major depressive disorder, single episode, unspecified; F17.200 Nicotine dependence, unspecified, uncomplicated; Z79.899 Other long term (current) drug therapy; Z79.891 Long term (current) use of opiate analgesic

== ENCOUNTER → 2019-07-15 | Outpatient (CLI) | payer BC ==
--- NOTE | 2019-07-18 09:07 | PAINCON ---
[facility] [address] [place] [address] PAIN MANAGEMENT CONSULTATION Name: ERIKABILIOSHAYY E Room: [facility]#: [id number] Admission: 07/15/19 Attend Phys: Cy Villegas MD Discharge: Date of : 64 Report #: [id number] THIS REPORT FOR: //name// cc: Bo Aragon Ahmad W. DO ~ THIS REPORT FOR: //name// CC: Bo Villegas DATE OF SERVICE: 07/15/2019 CHIEF COMPLAINT: Neck and left arm pain. HISTORY: The patient is a 58-year-old female who has been followed in the pain clinic because of chronic pain. She is having pain and discomfort in her left neck and arm. She feels that the Medrol Dosepak, which was called in on 05/15/2019 has been helpful. She is able to perform more of her activities of daily living with less pain and discomfort. Today, she would like to continue with her medications. She feels that the tramadol continues to be helpful. She feels that the Relafen helps. She is not complaining of any GI complaints at this point. Does still have problems with activities of daily living. Cold weather exacerbates her discomfort. Notes that walking, sitting and standing can be somewhat of a problem. ALLERGIES: No known drug allergies. CURRENT MEDICATIONS: Baclofen 10 mg 2 tablets p.o. t.i.d., Cymbalta 60 mg, Neurontin 300 mg t.i.d., nabumetone 500 mg t.i.d., nortriptyline 25 mg total of 50 daily, tramadol 50 mg every 4-6 hours p.r.n. PAIN CLINIC ASSESSMENT AND PQRS: 1. The patient is suffering from osteoarthritis, involves her left knee. Has some arthritic changes in her left shoulder as well. 2. Height 5 feet 1 inch, weight 141 pounds, BMI is 26.7. 3. Vital Signs: Blood pressure 126/84, heart rate 77, respiratory rate 16, room air saturation is 94%, temperature 97.8. 4. Pain intensity 09/04. 5. Fall history: The patient has not fallen in the last 3 months. 6. Blood thinner. The patient is not on a blood thinning medication. 7. Hypertension. The patient is not being treated for hypertension. 8. Opioids greater than 6 weeks. The patient receives medication from one source the pain clinic. 9. Risk assessment tool, low for opioid use. 10. Tobacco: The patient is trying to decrease use of tobacco, smokes 1-1/2 pack [place] [address] PAIN MANAGEMENT CONSULTATION Name: SHAYY JONES Room: [facility]#: [id number] Admission: 07/15/19 Attend Phys: Cy Villegas MD Discharge: Date of : 64 Report #: [id number] 11. Alcohol: The patient denies other than occasional use of alcoholic beverages. PHYSICAL EXAMINATION: GENERAL: The patient is a well-developed, well-nourished white female. Appears her stated age. She is alert and oriented x 3. Her affect is appropriate. Speech is fluent. HEENT: Normocephalic, atraumatic. Extraocular eye muscles intact. Sclerae nonicteric. Mucous membranes are moist. The patient does have some soreness in her neck involving her left arm. CHEST: Clear to auscultation. HEART: Regular rate. ABDOMEN: Nontender. MUSCULOSKELETAL: The patient has some discomfort in the left arm. Notes some pain between her shoulder and the elbow. Has some numbness and tingling in this area. Has some weakness in her left arm as well. The patient is without significant scoliosis, kyphosis or lordosis. Lower extremity muscle strength judged to be 5/5 for the major muscle groups in the lower extremity. IMPRESSION: 1. Chronic neck and myofascial pain. 2. Headache pain. 3. Depression. 4. Tobacco: The patient continues to try to decrease use of tobacco. 5. Left arm pain and left neck pain -- cervical radicular pain, left arm. 6. Chronic right wrist pain with a nodule in the left wrist. RECOMMENDATIONS: We discussed treatment options with the patient. At this juncture, we will continue with her medications. She was issued a Medrol Dosepak in early April. She feels that that was beneficial. We will continue with the nabumetone 500 mg t.i.d. She will take this with meals. She will stop taking the medication should she note some problem with her GI tract. She will also continue with tramadol 50 mg one p.o. q. 4 hours p.r.n. for pain control. Also, finds baclofen as a muscle relaxant continues to be helpful. She finds that the Voltaren gel to the affected upper extremity is beneficial as well. She will continue with Cymbalta and gabapentin. She will call us if she has any concerns. We would like to thank you for letting us participate in her care. We hope she continues to improve. Questions were sought from the patient and answered. <ELECTRONICALLY SIGNED> By: Cy Villegas MD 07/18/19 0907 [id number]. Kojo Villegas MD /NELY
== END ==
LOC: M.PC 07-10 09:30
DX: M54.2 Cervicalgia (principal); M79.602 Pain in left arm; M79.18 Myalgia, other site; F32.9 Major depressive disorder, single episode, unspecified; R51 Headache

== ENCOUNTER → 2019-09-09 | Outpatient (CLI) | payer BC ==
--- NOTE | 2019-09-10 15:09 | PAINCON ---
[address] [address] PAIN MANAGEMENT CONSULTATION Name: KARENSHAYY E [id number] Admission: 09/09/19 Attend Phys: Cy Villegas MD Discharge: Date of : 64 Report #: [id number] THIS REPORT FOR: //name// cc: Bo Aragon Ahmad W. DO THIS REPORT FOR: //name// CC: Bo Gutiérrez DATE OF SERVICE: 09/09/2019 CHIEF COMPLAINT: Here for medication renewal. HISTORY: The patient is a 58-year-old female who has been followed in the pain clinic. As you may recall, she has chronic pain involving her neck. She also suffers from myofascial pain. She rates her pain as a 3/10 today. She has pain that radiates down into her left arm. She has been able to work with her discomfort. She feels that the pain is about 60% improved on her current medical regimen. Notes that walking, sitting, and standing can be problematic. 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 She has noticed that the traffic has decreased somewhat. She has returned today for renewal of her medications, which she finds helpful. ALLERGIES: No known drug allergies. CURRENT MEDICATIONS: Baclofen 10 mg 2 tablets t.i.d., Cymbalta 60 mg, Neurontin 300 mg t.i.d., nabumetone 500 mg t.i.d., nortriptyline 25 mg total of 50 daily, and tramadol 50 mg q. 6 hours p.r.n. PAIN CLINIC ASSESSMENT/PQRS: 1. The patient is suffering from osteoarthritis involves her left knee. She also has arthritic changes in her left shoulder. She is not being treated for rheumatoid arthritis. 2. Height 5 feet 1 inch, weight 145 pounds, BMI is 25.0. 3. Vital signs: Blood pressure 138/85, heart rate 81, respiratory rate 16, room air saturation 96%, temperature 98.2. 4. Pain intensity 08/04. 5. Fall history: The patient has not fallen in the last 3 months. 6. Blood thinner. The patient is not on a blood thinning medication. 7. Hypertension. The patient is not being treated for hypertension. 8. Opioids greater than 6 weeks. The patient received medication from one source the pain clinic. 9. Risk assessment tool, low for opioid use. 10. Tobacco: The patient is trying to decrease her use of tobacco, smokes 05/29 [place] [address] PAIN MANAGEMENT CONSULTATION Name: SHAYY JONES [facility] [id number] Admission: 09/09/19 Attend Phys: Cy Villegas MD Discharge: Date of : 64 Report #: [id number] pack of cigarettes per day, down from 1-1/2 pack of cigarettes at the last visit. 11. Alcohol. The patient denies other than occasional use of alcoholic beverages. PHYSICAL EXAMINATION: GENERAL: The patient is a well-developed, well-nourished white female. Appears her stated age. She is alert and oriented x 3. Her affect is appropriate. Speech is fluent. HEENT: Normocephalic, atraumatic. Extraocular eye muscles intact. Sclerae nonicteric. Mucous membranes are moist. CHEST: Clear to auscultation. HEART: Regular rate. ABDOMEN: Nontender. MUSCULOSKELETAL: The patient without significant scoliosis, kyphosis, or lordosis. The patient has some pain and discomfort in the left arm. Has some pain and discomfort in the shoulder area. Lower extremity muscle strength judged to be 5/5 for the major muscle groups in the lower extremity. IMPRESSION: 1. Chronic neck pain and myofascial pain. 2. Headache pain. 3. Depression. 4. Tobacco. The patient continues to decrease use of tobacco. 5. Left arm pain and neck pain with cervical radicular component on the left. 6. Chronic wrist pain. RECOMMENDATIONS: We discussed treatment options with the patient. At this juncture, we will continue with her medications. She feels that her pain is improved by about 60% with use of the current medical regimen. We will continue with the diclofenac gel to the appropriate area. She will also continue with gabapentin 300 mg t.i.d. She will take the baclofen for muscle relaxation. She will also continue with nortriptyline and the nonsteroidal anti-inflammatory medication, nabumetone 500 mg t.i.d. The patient will take tramadol as necessary. She will call us if she has any concerns. She is trying to decrease use of tobacco. She is down to 1/2 pack of cigarettes per day. A script for her medications has been rewritten. She will continue with baclofen 10 mg 2 tablets p.o. t.i.d. p.r.n., Voltaren gel, Cymbalta 60 mg at bedtime, gabapentin 300 mg t.i.d., nabumetone 500 mg t.i.d., nortriptyline 25 mg 2 tablets, and tramadol [address] [place] [address] PAIN MANAGEMENT CONSULTATION Name: SHAYY JONES Room: [facility]#: [id number] Admission: 09/09/19 Attend Phys: Cy iVllegas MD Discharge: Date of : 64 Report #: [id number] We would like to thank you for letting us participate in her care. We hope she continues to improve. <ELECTRONICALLY SIGNED> By: Cy Villegas MD 09/10/19 1509 [id number] Villegas MD /[facility]
== END ==
LOC: M.PC 01:28
DX: M54.2 Cervicalgia (principal); M79.18 Myalgia, other site; R51 Headache; M25.539 Pain in unspecified wrist; F32.9 Major depressive disorder, single episode, unspecified; F17.200 Nicotine dependence, unspecified, uncomplicated; Z79.1 Long term (current) use of non-steroidal anti-inflammatories (NSAID); Z79.899 Other long term (current) drug therapy

== ENCOUNTER → 2019-11-04 | Outpatient (CLI) | payer BC ==
[~2019-11-04] MED LIST changes: +NEURONTIN300 MG PO
--- NOTE | ~2019-11-04 | PAINCON ---
[address] [address] PAIN MANAGEMENT CONSULTATION Name: RUTHELOYSHAYY E [facility]: [facility].#: [id number] Admission: 11/04/19 Attend Phys: Cy Villegas MD Discharge: Date of : 64 Report #: [id number] THIS REPORT FOR: //name// cc: Bo Aragon Ahmad W. DO ~ THIS REPORT FOR: //name// CC: Bo Villgeas DATE OF SERVICE: 11/04/2019 CHIEF COMPLAINT: Here for medication, still having pain in the neck and arm. HISTORY: The patient is a 59-year-old female who has been followed in the pain clinic. She continues to have pain and discomfort involving her neck and arm. She has returned today for renewal of her medications. Rates the pain in her neck as a 6/10. It involves her left shoulder blade and in the spine. She has been working more hours. This has caused an increase in pain. She has some numbness in both hands. Rates her pain as a 6/10 at this juncture. She feels that activity, walking, sitting, standing can exacerbate her discomfort. She does find use of medications and cold applications helpful. Feels that her pain is about 60% improved with her current medication. 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 ALLERGIES: No known drug allergies. CURRENT MEDICATIONS: Baclofen 10 mg 2 tablets t.i.d., Cymbalta 60 mg, Neurontin 300 mg t.i.d., nabumetone 500 mg t.i.d., amitriptyline 25 mg total of 50 per day, tramadol 50 mg every 6 hours. PAIN CLINIC ASSESSMENT/PQRS: 1. The patient suffers from osteoarthritis involving her left knee. She has some arthritic changes in her left shoulder. She is not being treated for rheumatoid arthritis. 2. Height 5 feet 1 inch, weight 147 pounds, BMI is 27.8. 3. Vital signs: Blood pressure 130/76, heart rate 88, respiratory rate 16, room air saturation 95%, temperature 97.8. 4. Pain intensity /10. 5. Fall history: The patient has not fallen in the last 3 months. 6. Blood thinner. The patient is not on a blood thinning medication. 7. Hypertension. The patient is not being treated for hypertension. 8. Opioids greater than 6 weeks. The patient receives medications from the pain clinic. 9. Risk assessment tool, low for opioid use. 10. Tobacco: The patient is trying to decrease use of tobacco[place] [address] PAIN MANAGEMENT CONSULTATION Name: SHAYY JONES Room: [facility]#: [id number] Admission: 11/04/19 Attend Phys: Cy Villegas MD Discharge: Date of : 64 Report #: [id number] from one and half pack of cigarettes per day. 11. Alcohol: The patient denies other than occasional drinking use of alcohol. PHYSICAL EXAMINATION: GENERAL: The patient is a well-developed, well-nourished white female. Appears her stated age. She is alert and oriented x 3. Her affect is appropriate. Speech is fluent. HEENT: Normocephalic, atraumatic. Extraocular eye muscles intact. Sclerae nonicteric. Mucous membranes are moist. CHEST: Clear to auscultation. HEART: Regular rate. ABDOMEN: Nontender. EXTREMITIES: Upper extremity muscle somewhat diminished on the left side because of the left arm pain. Lower extremity muscle strength judged to be 5/5 for the major muscle groups in the lower extremity. IMPRESSION: 1. Chronic neck pain and myofascial pain. 2. Headache pain. 3. Depression. 4. Tobacco use. 5. Left arm and neck with cervical radicular component on the left. 6. Chronic wrist pain. RECOMMENDATIONS: We discussed treatment options with the patient. At this juncture, we will continue with her medications. She feels these medications are helpful. They provide about 50-60% improvement in her pain. She has taken them as prescribed. She will also continue with tramadol and nabumetone. She has used baclofen to help with muscle spasms, she use diclofenac to the affected shoulder area 4 times daily. She will call us if she has any concerns. A script for her medications have been renewed for baclofen 10 mg t.i.d., diclofenac 1% to the affected area, Cymbalta 60 mg, nabumetone 500 mg t.i.d., nortriptyline 25 mg, tramadol 50 mg, gabapentin 300 mg 1 p.o. t.i.d. She will call us if she has any concerns. By: [id number]. Kojo Villegas MD /[place]
== END ==
LOC: M.PC 04:20
PROVIDERS: ATTEND Anesthesiology Pain Medicine
DX: M54.2 Cervicalgia (principal); M79.18 Myalgia, other site; R51 Headache; M25.539 Pain in unspecified wrist; M13.812 Other specified arthritis, left shoulder; I10 Essential (primary) hypertension; Z72.0 Tobacco use

== ENCOUNTER → 2019-12-30 | Outpatient (CLI) | payer BC ==
--- NOTE | 2020-01-13 08:25 | PAINCON ---
[address] [address] PAIN MANAGEMENT CONSULTATION Name: SHAYY JONES [id number] Admission: 12/30/19 Attend Phys: Cy Villegas MD Discharge: Date of : 64 Report #: [id number] THIS REPORT FOR: //name// cc: Bo Aragon Ahmad W. DO ~ THIS REPORT FOR: //name// CC: Bo Villegas DATE OF SERVICE: 12/30/2019 CHIEF COMPLAINT: Neck and arm pain continues. HISTORY: The patient is a 59-year-old female who has been followed in the Pain Clinic for chronic pain involving her neck and down into her arm. 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 She has been more stressed at this juncture. 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 They have challenged her and the other employees. This makes her job more stressful. This also increases her level of pain and discomfort. She has returned today for renew of her medication. She has pain that involves the left shoulder blade and down into her spine. Notes that activities such as walking, sitting, standing, and other activities of daily living exacerbate the discomfort. She feels her medications as well as application of cold can be helpful. She has returned today for renew of her medications. ALLERGIES: No known drug allergies. CURRENT MEDICATIONS: Baclofen 10 mg 2 tablets t.i.d., Cymbalta 60 mg, Neurontin 300 mg t.i.d., nabumetone 500 mg t.i.d., amitriptyline 25 mg 2 tablets 50 mg at bedtime, tramadol 50 mg q. 6 hours. PAIN CLINIC ASSESSMENT AND PQRS: 1. The patient suffers from osteoarthritis involving her left knee. She has some arthritic changes in her shoulder. She is not being treated for rheumatoid arthritis. 2. Height 5 feet 1 inch, weight 149 pounds, BMI is 28.3. 3. Vital signs: Blood pressure 138/87, heart rate 89, respiratory rate 16, room air saturation 98%, temperature 98.2. 4. Pain intensity: 6/10. 5. Fall history: The patient has not fallen in the last 3 months. 6. Blood thinner: The patient is not on a blood thinning medication. 7. Hypertension: The patient is not being treated for hypertension. 8. Opioids greater than 6 weeks: The patient receives medication from the Pain Clinic. 9. Risk assessment tool: [place] [address] PAIN MANAGEMENT CONSULTATION Name: SHAYY JONES Room: [facility]#: [id number] Admission: 12/30/19 Attend Phys: Cy Villegas MD Discharge: Date of : 64 Report #: [id number] 10. Tobacco: The patient is trying to decrease her tobacco use and smokes 1-1/2 pack of cigarettes per day. 11. Alcohol: The patient denies use of alcohol except on occasion. PHYSICAL EXAMINATION: GENERAL: The patient is a well-developed, well-nourished, white female. Appears her stated age. She is alert and oriented x 3. Her affect is appropriate. Speech is fluent. HEENT: Normocephalic, atraumatic. Extraocular eye muscles intact. Sclerae nonicteric. Mucous membranes are moist. CHEST: Clear to auscultation. HEART: Regular rate. ABDOMEN: Nontender. MUSCULOSKELETAL: Upper extremity muscle strength is somewhat diminished on the left side because of left arm pain. Lower extremity muscle strength is judged to be 5/5 for the major muscle groups in the lower extremity. IMPRESSION: 1. Chronic neck pain with myofascial pain. 2. Headache pain. 3. Depression. 4. Tobacco use. 5. Left arm and neck pain with cervical radicular components on the left. 6. Chronic wrist pain. RECOMMENDATIONS: We discussed treatment options with the patient. At this juncture, we will continue with the patient's current medications. She finds that the Ultram medication continues to be helpful. She also finds the use of nabumetone beneficial. She finds application of diclofenac to the affected area helpful. A script for her medications have been rewritten. She will continue with the use of tramadol and nabumetone. She will monitor her GI tract for problems with the nonsteroidal anti-inflammatory effects of diclofenac. She will continue with baclofen 10 mg 1 p.o. t.i.d. She will continue with Cymbalta 60 mg, she will continue with nortriptyline 25 mg and gabapentin 300 mg t.i.d. We would like to thank you for letting us participate in her care. We hope she continues to improve. <ELECTRONICALLY SIGNED> By: Cy Villegas MD 01/13/20 0825 11 [id number]. Kojo Villegas MD /reina
== END ==
LOC: M.PC 02:17
PROVIDERS: ATTEND Anesthesiology Pain Medicine
DX: M54.2 Cervicalgia (principal); M79.602 Pain in left arm; G89.29 Other chronic pain; M79.10 Myalgia, unspecified site; R51 Headache; F32.9 Major depressive disorder, single episode, unspecified; M25.531 Pain in right wrist; F11.20 Opioid dependence, uncomplicated; Z72.0 Tobacco use

== ENCOUNTER → 2020-02-24 | Outpatient (CLI) | payer BC ==
--- NOTE | ~2020-02-24 | PAINCON ---
[address] [address] PAIN MANAGEMENT CONSULTATION Name: RUTHELOYSHAYY E [facility] [id number] Admission: 02/24/20 Attend Phys: Cy Villegas MD Discharge: Date of : 64 Report #: [id number] THIS REPORT FOR: //name// cc: Bo Aragon Ahmad W. DO ~ THIS REPORT FOR: //name// CC: Bo Villegas DATE OF SERVICE: 02/24/2020 CHIEF COMPLAINT: Pain in the neck with numbness in the hands and left arm pain. HISTORY: The patient is a 59-year-old female who has been followed in the pain clinic. As you may recall, she suffers from chronic neck pain. Notes that there is pain that radiates down into her left arm at this juncture. 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 Notes that certain activities such as standing and lifting can exacerbate her pain and discomfort. She feels that her medications are helpful. She rates her pain as 75% improved with her current medical regimen of Ultram and nabumetone. She is cognizant of COVID-19. She states that she must work. She wears facial covering and uses much protective activities as described by the CDC. She would like to have her medications renewed. ALLERGIES: No known drug allergies. CURRENT MEDICATIONS: Baclofen 10 mg 2 tablets t.i.d., Cymbalta 60 mg, Neurontin 300 mg t.i.d., nabumetone 500 mg t.i.d., amitriptyline 25 mg 2 tablets at bedtime, tramadol 50 mg every 4-6 hours p.r.n. PAIN CLINIC ASSESSMENT AND PQRS: 1. The patient suffers from osteoarthritis involving her left knee. She has had some arthritic changes in her shoulder. She is not being treated for rheumatoid arthritis. 2. Height 5 feet 1 inch, weight 155 pounds, BMI is 29. 3. Vital signs: Blood pressure is 125/74, heart rate 88, respiratory rate 16, room air saturation 98%, temperature 98.1. 4. Pain intensity 09/04. 5. Fall history: The patient has not fallen in the last 3 months. 6. Blood thinner. The patient is not on a blood thinning medication. 7. Fall risk. The patient has not fallen in the last 3 months. 8. Blood thinner. The patient is not on a blood thinning medication. 9. Hypertension. The patient is not being treated for hypertension. 10. Opioids greater than 6 weeks. The patient receives medications [place] [address] PAIN MANAGEMENT CONSULTATION Name: SHAYY JONES Room: [facility]#: [id number] Admission: 02/24/20 Attend Phys: Cy Villegas MD Discharge: Date of : 64 Report #: [id number] 11. Risk assessment tool, low for opioids. 12. Functional assessment tool reviewed. 13. Recreational drug use. The patient denies use of recreational drugs. 14. Tobacco:. The patient uses tobacco, smokes 1-1/2 pack of cigarettes per day. 15. Alcohol. The patient denies frequent use of alcoholic beverages. PHYSICAL EXAMINATION: GENERAL: The patient is a well-developed, well-nourished white female. Appears her stated age. She is alert and oriented x 3. Her affect is appropriate. Speech is fluent. HEENT: Normocephalic, atraumatic. Extraocular eye muscles intact. Sclerae nonicteric. Mucous membranes are moist. NECK: Without adenopathy or JVD. The patient is wearing a facial covering. CHEST: The patient does clear her throat numerous times during the visit states that she is suffering from allergies. The pollen count has increased. HEART: Regular rate. ABDOMEN: Nontender. MUSCULOSKELETAL Her upper extremity muscle strength judged to be 5-/5 on the left side. Muscle strength on the right, judged to be 5/5 for the major muscle groups. In the lower extremity patient's muscle strength is 5/5 for the lower muscle strength. IMPRESSION: 1. Chronic neck pain with myofascial components. 2. Headache pain. 3. Depression. 4. Tobacco use. 5. Left arm and neck pain and cervical radicular components on the left. 6. Chronic wrist pain. RECOMMENDATIONS: We discussed treatment options with the patient. We will continue with her medications. She feels that the Ultram medication is helpful in controlling the pain. She feels that the home is beneficial for muscle spasms nabumetone 500 mg t.i.d. She also feels that amitriptyline is helpful with sleep. She is not having any nonsteroidal problems with the use of nabumetone. She feels the baclofen medication is helpful with muscle spasms. A script for her medications have been provided and sent to her pharmacy. She will call us if she has any concerns. She is aware that decreasing tobacco use would be beneficial. By: [id number]. Kojo Villegas MD /nt
== END ==
LOC: M.PC 08:18
PROVIDERS: ATTEND Anesthesiology Pain Medicine
DX: M54.2 Cervicalgia (principal); R51 Headache; F32.9 Major depressive disorder, single episode, unspecified; M25.539 Pain in unspecified wrist; G89.29 Other chronic pain

== ENCOUNTER → 2020-04-20 | Outpatient (CLI) | payer BC ==
[~2020-04-20] MED LIST changes: +RELAFEN500 M1 PO
--- NOTE | ~2020-04-20 | PAINCON ---
[address] [address] PAIN MANAGEMENT CONSULTATION Name: RUTHELOYSHAYY E [id number] Admission: 04/20/20 Attend Phys: Cy Villegas MD Discharge: Date of : 64 Report #: [id number] THIS REPORT FOR: //name// cc: Bo Aragon Ahmad W. DO ~ CC: Bo Gutiérrez DATE OF SERVICE: 04/20/2020 CHIEF COMPLAINT: Neck, arm, and left buttocks pain. HISTORY: The patient is a 59-year-old female who has been followed in the pain clinic. She has pain and discomfort in her hand as well as in her left arm. The pain today is mostly in the left shoulder blade area and an area close to her spine in the neck area. She also has pain that is radiating down the lower portion of her left buttocks can become more problematic with activity. She notes that while cleaning and bending this exacerbates the pain that runs down the back side of her buttocks down the posterior portion of her leg and causes more pain and discomfort. She has changed the jobs. 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 She now works at [employer], which is in the same truck stop area. She has returned today for renewal of her medications. Rates her pain as a 7/10. ALLERGIES: No known drug allergies. CURRENT MEDICATIONS: Baclofen 10 mg 2 tablets t.i.d., Cymbalta 60 mg, Neurontin 300 mg t.i.d., nabumetone 500 mg t.i.d., amitriptyline 25 mg 2 tablets at bedtime, tramadol 50 mg every 4-6 hours p.r.n. PAIN CLINIC ASSESSMENT AND PQRS: 1. The patient does suffer from some osteoarthritis involving her left knee. She has had some arthritic changes in her shoulder. She is not being treated for rheumatoid arthritis. 2. Height 5 feet 1 inch, weight 157 pounds, BMI is 29. 3. Vital Signs: Blood pressure is 112/70, pulse is 87, respiratory rate 16, room air saturation 96%, temperature 97.4. 4. Pain intensity 7/10. 5. Fall history: The patient has not fallen in the last 3 months. 6. Blood thinner. The patient is not on a blood thinning medication. 7. Hypertension. The patient is not being treated for hypertension. 8. Opioids greater than 6 weeks. The patient receives medication from the pain clinic. 9. Risk assessment tool, [place] [address] PAIN MANAGEMENT CONSULTATION Name: KENNEY JONESRA Barry Room: [facility]#: [id number] Admission: 04/20/20 Attend Phys: Cy Villegas MD Discharge: Date of : 64 Report #: [id number] 10. Functional assessment tool reviewed. 11. Recreational drug use: The patient denies use of recreational drugs. 12. Tobacco: The patient uses tobacco, smokes 1-1/2 pack of cigarettes per day. 13. Alcohol. The patient denies frequent use of alcoholic beverages. PHYSICAL EXAMINATION: GENERAL: The patient is a well-developed, well-nourished white female. Appears her stated age. She is alert and oriented x 3. Her affect is appropriate. Speech is fluent. The patient is wearing a facial covering. NECK: Without adenopathy or JVD. CHEST: Generally clear. The patient clears her throat during the visit. HEART: Regular rate. ABDOMEN: Nontender. MUSCULOSKELETAL: Upper extremity muscle strength judged to be 5-/5 for the major muscle groups in the upper extremity. The patient complains of some pain and discomfort in the area of the trapezius near her neck with some tightness. The patient has pain and discomfort in the left lower back area with pain radiating down the buttocks and the L5-S1 dermatomal distribution. Muscle strength judged to be 5-/5 for the lower muscle groups. IMPRESSION: 1. Chronic neck pain with myofascial pain component. 2. Headache pain. 3. Depression. 4. Tobacco use. 5. Left arm and neck pain with cervical radicular components on the left. 6. Chronic wrist pain. 7. Symptomatology consistent with sciatic nerve root irritation. RECOMMENDATIONS: We discussed treatment options with the patient. At this juncture, we will continue with her medications. A script for her medications have been rewritten. They have been sent to the pharmacy. Questions were sought and answered. The patient feels that her medications continue to be helpful. She is not having any problems with the tramadol medication. She is able to think clearly. She continues to monitor her GI tract in regards to use of the nabumetone. She will call us if she has any concerns. A script for her medications have been rewritten and forwarded to the pharmacy. She will continue with these medications of baclofen 10 mg t.i.d. for muscle spasms. She will also continue with diclofenac gel to the affected shoulder area. She will continue with Cymbalta 60 mg. She will continue with tramadol 50 mg as [place] [address] PAIN MANAGEMENT CONSULTATION Name: SHAYY JONES Room: [facility]#: [id number] Admission: 04/20/20 Attend Phys: Cy Villegas MD Discharge: Date of : 64 Report #: [id number] We would like to thank you for letting us participate in her care. We hope she continues to improve. By: [id number]. Kojo Villegas MD /[facility]
== END ==
LOC: M.PC 08:46
PROVIDERS: ATTEND Anesthesiology Pain Medicine
DX: M54.2 Cervicalgia (principal); M25.50 Pain in unspecified joint; M25.532 Pain in left wrist; R51.9 Headache, unspecified; F32.9 Major depressive disorder, single episode, unspecified; Z72.0 Tobacco use; Z88.8 Allergy status to other drugs, medicaments and biological substances; Z79.899 Other long term (current) drug therapy

== ENCOUNTER → 2020-06-15 | Outpatient (CLI) | payer BC | LOC: M.PC 08:59 | PROVIDERS: ATTEND Anesthesiology Pain Medicine | DX: M54.2 Cervicalgia (principal); G89.29 Other chronic pain; R51.9 Headache, unspecified; F32.9 Major depressive disorder, single episode, unspecified; M79.10 Myalgia, unspecified site; Z72.0 Tobacco use; M79.602 Pain in left arm ==

== ENCOUNTER → 2020-08-10 | Outpatient (CLI) | payer BC | LOC: M.PC 08:34 | PROVIDERS: ATTEND Anesthesiology Pain Medicine | DX: M54.2 Cervicalgia (principal); G89.29 Other chronic pain; R51.9 Headache, unspecified; F32.9 Major depressive disorder, single episode, unspecified; Z72.0 Tobacco use; M79.602 Pain in left arm; M25.539 Pain in unspecified wrist; M54.5 Low back pain; M79.10 Myalgia, unspecified site; Z88.8 Allergy status to other drugs, medicaments and biological substances; Z79.899 Other long term (current) drug therapy ==

== ENCOUNTER → 2020-10-05 | Outpatient (CLI) | payer BC | LOC: M.PC 08:46 | PROVIDERS: ATTEND Anesthesiology Pain Medicine | DX: M54.12 Radiculopathy, cervical region (principal); G89.29 Other chronic pain; M54.2 Cervicalgia; R51.9 Headache, unspecified; M25.539 Pain in unspecified wrist; M54.5 Low back pain; F32.9 Major depressive disorder, single episode, unspecified; Z72.0 Tobacco use ==

== ENCOUNTER → 2020-11-30 | Outpatient (CLI) | payer BC ==
[~2020-11-30] MED LIST changes: +VOLTAREN ARTHRI20 GM TOP
== END ==
LOC: M.PC 09:05
PROVIDERS: ATTEND Anesthesiology Pain Medicine
DX: M54.2 Cervicalgia (principal); G44.209 Tension-type headache, unspecified, not intractable; M79.601 Pain in right arm; M25.539 Pain in unspecified wrist; M54.5 Low back pain; F32.9 Major depressive disorder, single episode, unspecified; Z79.899 Other long term (current) drug therapy; Z79.891 Long term (current) use of opiate analgesic

== ENCOUNTER → 2021-01-25 | Outpatient (CLI) | payer OTHER | LOC: M.PC 08:54 | PROVIDERS: ATTEND Anesthesiology Pain Medicine | DX: G89.29 Other chronic pain (principal); M54.12 Radiculopathy, cervical region; R51.9 Headache, unspecified; F32.89 Other specified depressive episodes; M54.30 Sciatica, unspecified side; M54.5 Low back pain; Z72.0 Tobacco use; M79.602 Pain in left arm ==

== ENCOUNTER → 2021-03-22 | Outpatient (CLI) | payer OTHER | LOC: M.PC 08:48 | PROVIDERS: ATTEND Anesthesiology Pain Medicine | DX: G89.29 Other chronic pain (principal); M54.2 Cervicalgia; F32.9 Major depressive disorder, single episode, unspecified; M25.539 Pain in unspecified wrist; M54.50 Low back pain, unspecified; M54.12 Radiculopathy, cervical region; M79.602 Pain in left arm; Z72.0 Tobacco use ==

== ENCOUNTER → 2021-05-17 | Outpatient (CLI) | payer OTHER | LOC: M.PC 08:48 | PROVIDERS: ATTEND Anesthesiology Pain Medicine | DX: M54.2 Cervicalgia (principal); G89.29 Other chronic pain; R51.9 Headache, unspecified; F32.A Depression, unspecified; M54.12 Radiculopathy, cervical region; M54.50 Low back pain, unspecified; M25.539 Pain in unspecified wrist; M79.602 Pain in left arm ==

== ENCOUNTER → 2021-07-12 | Outpatient (CLI) | payer OTHER | LOC: M.PC 08:39 | PROVIDERS: ATTEND Anesthesiology Pain Medicine | DX: M54.2 Cervicalgia (principal); M54.50 Low back pain, unspecified; G89.29 Other chronic pain; R51.9 Headache, unspecified; M25.0 Hemarthrosis; F34.89 Other specified persistent mood disorders; Z72.0 Tobacco use; Z79.899 Other long term (current) drug therapy ==